=== PATIENT | male | born 1995 | race African-American/Black ===

== ENCOUNTER 2017-02-23 08:01 | Emergency (ER) | payer SELFPAY ==
[~2017-02-23] VITALS: Ht 180.3 cm; Wt 76.0 kg
[~2017-02-23 08:01] MED LIST: DOXY100T PO
[2017-02-23 08:02] VITALS: BP 145/81; PULSE 80; RESP 18; TEMP 98.3; O2SAT 100
--- NOTE | 2017-02-23 08:25 | PD ---
HPI Chief Complaint: Complaint Time Seen by Provider: 08:15 Travel History International Travel<30 days: No Contact w/Intl Traveler<30days: No Traveled to known affect area: No History of Present Illness HPI Patient comes in noting dysuria that began yesterday. Patient reports he had similar in the past and was treated. Patient denies anything making it better or worse. Denies any fevers, abdominal pain, testicular pain, penile discharge , rash, or back pain. Denies any nausea or vomiting. Denies doing anything for this. Patient does admit to being sexually active. [facility]LY [facility] Past Medical History Medical History: Denies Significant Hx Past Surgical History Surgical History: No Previous Surgery Social History Alcohol Use: Yes (SOCIALLY) Tobacco Use: Yes (BLACK & MILD) Substance Use: No Allergies-Medications (Allergen,Severity, Reaction): Coded Allergies: No Known Allergies (Unverified Adverse Reaction, Unknown, 02/23/17) Reported Meds & Prescriptions Reported Meds & Active Scripts Active No Active Prescriptions or Reported Medications Review of Systems Except as stated in HPI: all other systems reviewed are Neg Physical Exam Narrative GENERAL: Well-developed, well nourished, in no acute distress, and non-ill appearing. SKIN: Focused skin assessment warm and dry. HEAD: Atraumatic. Normocephalic. EYES: Pupils equal and round. EOMI. No scleral icterus. No injection or drainage. ENT: No nasal bleeding or discharge. Mucous membranes pink and moist. NECK: Trachea midline. Supple. No nuclear rigidity. RESPIRATORY: No accessory muscle use. No respiratory distress. GASTROINTESTINAL: Abdomen soft, non-tender, nondistended, and no guarding. Hepatic and splenic margins not palpable. No pulsatile mass. MUSCULOSKELETAL: No obvious deformities. No clubbing. No cyanosis. No edema. Full range of motion. NEUROLOGICAL: Awake and alert. No obvious cranial nerve deficits. Motor grossly within normal limits. Normal speech. PSYCHIATRIC: Appropriate mood and affect; insight and judgment normal. Data Data Last Documented VS Vital Signs Date Time Temp Pulse Resp B/P (MAP) Pulse Ox O2 Delivery O2 Flow Rate FiO2 02/23/17 09:01 02/23/17 08:02 98.3 80 18 100 Room Air Orders Orders Urinalysis - C+S If Indicated (02/23/17 08:20) Gc And Chlamydia Pcr (02/23/17 08:20) Azithromycin Powd Pack (Zithromax Powd P (02/23/17 08:30) Metronidazole (Flagyl) (02/23/17 08:30) Sodium Chloride 0.9% Flush (Ns Flush) (02/23/17 08:30) Ceftriaxone Inj (Rocephin Inj) (02/23/17 08:30) Lidocaine Pf 1% Inj (Xylocaine-Mpf 1% In (02/23/17 08:30) Ed Discharge Order (02/23/17 08:25) Labs Laboratory Tests Test 02/23/17 08:[address] [facility] Medical Decision Making Medical Screen Exam Complete: Yes Emergency Medical Condition: Yes Differential Diagnosis UTI, STD, dysuria Narrative Course Patient in no obvious distress upon re-evaluation. Any questions/concerns in reference to patient diagnosis/condition discussed and clarified prior to patient's discharge. Reinforced sheer importance of close follow up with patient 's primary physician or primary care clinic. Instructed patient to return to ED immediately, if symptoms return/worsen. Patient showed understanding of above instructions. Further instructions and recommendations were detailed in discharge paperwork. Patient ambulated without difficulty out of ED at discharge. Diagnosis Primary Impression: Dysuria Additional Impression: Possible exposure to STD Referrals: [facility] Dept. Patient Instructions: Dysuria (ED), General Instructions, Sexually Transmitted Diseases (DC) Additional Instructions: Follow-up with your primary care physician and/or health Department for additional STD testing. Notify all sexual partners have them tested and treated. Do not have intercourse until all sexual partners tested and treated. Practice safe sex to prevent further STDs and/or unwanted pregnancies. If you would like a copy of your gonorrhea and chlamydia results bring a photo ID to medical records in 24-48 hours to get a copy. Return to the emergency department if symptoms get worse. Scripts No Active Prescriptions or Reported Meds Disposition: 01 DISCHARGE HOME Condition: Stable Neil Orozco Feb 23, 2017 08:25
[2017-02-23] MEDS ORDERED: LIDOCAINE HCL 1% PF 30 ML VIAL XX ONE (08:30)
[2017-02-23] MEDS ORDERED: metroNIDAZOLE 500 MG TAB PO ONE (08:30)
[2017-02-23] MEDS ORDERED: AZITHROMYCIN PWD FOR SUSP 1 GM PACKET PO ONE (08:30)
[2017-02-23] MEDS ORDERED: SODIUM CHLORIDE 0.9% FLUSH 10 ML FLUSH IVF PRN (08:30)
[2017-02-23 09:17] LABS: BLOOD, URINE NEG (NEG); COMMENT (UR) CULTURE INDICATED; CULTURE IF INDICATED CULTURE INDICATED; GLUCOSE,URINE NEG (NEG); KETONE, URINE NEG (NEG); NITRITE,URINE NEG (NEG); URINE COLOR YELLOW (YELLW/STRAW)
[2017-02-23 11:38] LABS: CHLAMYDIA PCR NOT DETECTED (NOT DETECT); NEISSERIA PCR DETECTED (NOT DETECT)
== END 2017-02-23 09:02 | disposition home or self-care (01) ==
LOC: NEPD 08:01
DX: R30.0 Dysuria (principal); F17.200 Nicotine dependence, unspecified, uncomplicated
CPT/HCPCS: 81001; 87086; 87491; 87591; 96372; 99285; J0696